=== PATIENT | male | born 1970 | race Caucasian/White ===

== ENCOUNTER 2018-01-12 10:00 | Emergency (ER) | payer MEDICARE, MEDICAID ==
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
[2018-01-12 12:20] LABS: Hematocrit 52 % (42-52); Hemoglobin 18.5 g/dl (14.0-18.0); Mean Corpuscular HGB Conc 36 g/dl (31-36); Mean Corpuscular Hemoglobin 34 pg (27-31); Mean Corpuscular Volume 96 fL (80-94); Mean Platelet Volume 7.8 um3 (7.4-10.4); Platelet Count 336 10^3/ul (150-450); Red Blood Count 5.38 10^6/ul (4.00-5.40); Red Cell Distribution Width 13 % (10.5-15); White Blood Count 10.7 10^3/ul (3.5-10.8)
[2018-01-12 12:26] LABS: INR 0.96 (0.77-1.02)
--- NOTE | 2018-01-12 12:42 | RAD ---
INDICATION: Left wrist injury. TECHNIQUE: 3 views of the left wrist were obtained. FINDINGS: The bones are in normal alignment. No fracture is seen. Joint spaces appear maintained. IMPRESSION: NO EVIDENCE FOR FRACTURE. IF THE PATIENT'S SYMPTOMS PERSIST RECOMMEND FOLLOW-UP IMAGING.
--- NOTE | 2018-01-12 12:48 | RAD ---
INDICATION: Head injury. COMPARISON: Comparison is made with a prior CT of the brain from March 01, 2009. TECHNIQUE: Contiguous axial sections of the brain were obtained from the skull base to the vertex without contrast. FINDINGS: The ventricles, cisterns and sulci are within normal limits. No significant focal abnormality or mass effect is seen. There is no evidence for hemorrhage. There is a relatively large hematoma present adjacent to the right temporal and frontal bones in the scalp measuring 8.0 x 1.8 cm in size. No fracture is seen. The visualized portion of the paranasal sinuses and mastoid air cells appear clear. IMPRESSION: LARGE HEMATOMA IN THE SCALP ADJACENT TO THE RIGHT TEMPORAL AND PARIETAL BONES, NO FRACTURE IS SEEN. NO EVIDENCE FOR ACUTE INTRACRANIAL ABNORMALITY.
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
[2018-01-12] MEDS ORDERED: Acetaminophen TAB* 325 MG PO ONE (13:07)
[2018-01-12] MEDS ORDERED: Fluorescein Sodium TOPICAL* 1 MG TEST STRIP OPHTHALMIC ONE (13:37)
[2018-01-12] MEDS ORDERED: Tetracaine 0.5% OPTH.SOL 15ML* BTL RIGHT EYE ONE (13:37)
[2018-01-12 17:31] VITALS: BP 141/99
== END 2018-01-12 17:29 | disposition short-term general hospital (02) ==
LOC: ED 10:00
DX: S00.83XA Contusion of other part of head, initial encounter (principal); H53.9 Unspecified visual disturbance; Y00.XXXA Assault by blunt object, initial encounter; Y92.009 Unspecified place in unspecified non-institutional (private) residence as the place of occurrence of the external cause; Z87.891 Personal history of nicotine dependence; L40.50 Arthropathic psoriasis, unspecified; F41.9 Anxiety disorder, unspecified
CPT/HCPCS: 36415; 70450; 70486; 85027; 85610; 85730; 99284; A9270-GY

== ENCOUNTER 2018-01-22 11:21 | Inpatient (IN) | payer MEDICARE, MEDICAID ==
--- OUTSIDE RECORDS SUMMARY | 2018-01-22 11:59 | XMS REPORT ---
:1970 External Reference #:[id number] Author Organization [facility] Address [address] [place] [address] [place] [address] Phone [phone] Care Team Providers Name Role Phone Chintan Ayala MD Primary Care Physician Unavailable Payers Type Date Identification Numbers Payment Provider Subscriber Medicare Primary Effective: Policy Number: Medicare Varun Alvarado Backner 2008 [id number] PayID: [id number] [address] [place] [address] Medigap Part B Effective: 2014 Policy Number: [id number] Medicaid Varun Alvarado Backner PayID: [id number] [address] [place] [address] Medigap Part B Effective: 2008 Policy Number: [id number] Medicaid Varun Alvarado Backner Expires: 2014 Group Name: [id number] PayID: [id number] [place] [address] Problems Date Description Provider Status Onset: 12/08/2013 Psoriasis with arthropathy Roger Fung M.D. Active Onset: 12/08/2013 Myalgia & Myositis Unspec Roger Fung M.D. Active Onset: 12/22/2013 Disorder of shoulder Roger Fung M.D. Active Onset: 04/06/2014 Synovitis and tenosynovitis Roger Fung M.D. Active Onset: 01/05/2015 Psoriatic arthritis with spine AMANDA Hamilton Active involvement Social History Type Date Description Comments Work Status Not Currently Working Work Status Chrinically disabled ETOH Use Denies alcohol use ETOH Use He was an alcoholic until 10 years ago when he quit Smoking Patient is a former smoker quit 2006 Exercise Type/Frequency short walks (ffot pain), swiming, weights Allergies, Adverse Reactions, Alerts Date Description Reaction Status Severity Comments 08/26/2013 Sulfur active Medications Medication Date Status Form Strength Qnty SIG Indications Ordering Provider Kishore 03/26/ Active Misc for disposal L40.53 [employer] Container 2018 of needles Gonzalo, MEDICAL LAB TECHNOLOGIST Humira Pen 05/18/ Active PNKT 40mg/0.8M 4unit inject 40 mg L40.53 Zsofia 2014 L s subcutaneous Gonzalo, once every MEDICAL LAB TECHNOLOGIST other week Vitamin E / Active Capsules 1000Unit qd Unknown 0000 Calcium 600 / Active Tablets 600mg 1 by mouth a Unknown 0000 day Vitamin D-3 / Active Tablets 2000Units 8tabs 2500 iu Unknown 0000 Daily-Vitamin / Active Tablets 1 by mouth Unknown 0000 every day [facility]-3 Fish / Active Capsules 1200mg 1 by mouth Unknown Oil 0000 every day Miralax / Active Powder 3350NF 238gm 17 gm every Unknown 0000 day mixed w/ 8 oz water/juice Trazodone HCL / Active Tablets 150mg 120ta 2 by mouth Unknown 0000 bs every night at bedtime Morphine / Active Tablets 7.5 1by mouth two G89.4 Unknown Sulfate 0000 a day Metformin HCL 00/ Active Tablets 500mg Unknown 0000 Vraylar 0000/ Active Capsules 1.5mg Unknown 0000 Meloxicam / Active Tablets 15mg 1 by mouth Unknown 0000 every day Ginkgo Biloba 00/ Active Capsules 30mg 1 by mouth Unknown 0000 twice a day Ginseng 00/ Active Capsules Unknown 0000 Multivitamin 0000/ Active Tablets 1 by mouth Unknown Adult 0000 every day Probiotic 00/ Active Capsules 1 by mouth Unknown 0000 every day Diclofenac 04/08/ Hx Solution 1.5% 150ml apply to M25.511 [facility]ia Sodium 2016 - affected area Gonzalo, 03/27/ 2x daily as MEDICAL LAB TECHNOLOGIST 2017 needed for pain Leflunomide 05/18/ Hx Tablets 20mg 30tab 1/2 tab po 696.0 Zsofia 2015 - s for one week Gonzalo, 07/13/ then 1 tab by MEDICAL LAB TECHNOLOGIST 2015 mouth every day Aleve 05/18/ Hx Capsules 220mg 60cap 1 tab by 696.0 Zsofia 2014 - s mouth twice a Gonzalo, [facility] 2014 Stelara 10/07/ Hx Solution 90mg/ml 4unit inject sq at [facility] 2013 - s week 0, week Fung, and every M.D. 2014 12 weeks thereafter. Vitamin C 08/26/ Hx Capsules 500-400mg 1 by mouth Roger 2013 - -Unit every day Fung, /Vitamin E 08/26/ M.D. 2013 Red Rice Yeast 08/26/ Hx 1 by mouth [facility] 2013 - every day Fung, 08/26/ M.D. 2013 Humira / Hx Kit 40mg/0.8M 2unit every other Unknown 0000 - L s week 2013 Vitamin C / Hx Tablets 1000mg 1 by mouth Unknown 0000 - every day 2013 Gabapentin / Hx Capsules 800mg 90cap 1 q 4 hr prn Unknown 0000 - s 2015 Lorazepam 00/ Hx Tablets 2mg 90tab 1 po bid Unknown 0000 - s 2015 Methadone HCL / Hx Tablets 10mg 90tab once daily in G89.4 Unknown 0000 - s morning 2017 Morphine /00/ Hx Tablets ER 30mg 1 by mouth Unknown Sulfate ER 0000 - 2014 Morphine /00/ Hx Tablets ER 30mg 60tab 1 by mouth G89.4 Unknown Sulfate ER 0000 - s every 12h 2017 Nexium /00/ Hx Capsules 40mg 30cap 1 by mouth Unknown 0000 - DR s every day 2017 Niacin /00/ Hx Tablets 50mg qd Unknown 0000 - 2015 Red Yeast Rice /00/ Hx Capsules 600mg twice a day Unknown Extract 0000 - by mouth 2013 Saphris /00/ Hx Tablets 5mg 1 po at hs Unknown 0000 - Sub 2014 Vitamin B-12 / Hx Liquid 1000mcg/1 inject 1000 Unknown 0000 - 5ML mcg q month 2017 Rexulti /00/ Hx Tablets 2mg Unknown 0000 - 2016 Vit B12 / Hx po qd Unknown 0000 - 2016 Lorazepam / Hx Tablets 2mg take 1 tablet Unknown 0000 - by mouth 09/04/ twice a day 2016 maximum daily dose of 2 Morphine / Hx Tablets 15mg 1 tab by G89.4 Unknown Sulfate 0000 - mouth twice a day as needed 2017 for increased pain Medications Administered in Office Medication Date Status Form Strength Qnty SIG Indications Ordering Provider Triamcinolone 04/06/ Administered Injection Roger (Kenalog) 2014 Valentin Fung Triamcinolone 12/22/ Administered Injection Roger (Kenalog) 2013 Valentin Fung Immunizations CPT Code Status Date Vaccine Reaction Lot # [id number] Given 12/07/2016 Pneumonia Vaccine no immediate reaction [id number] noted [id number] Given 11/22/2015 Pneumococcal Conjugate [id number] Vaccine 13 Valent For Intramuscular Use Vital Signs Date Vital Result Comment 01/14/2018 Height 68.75 inches 5'8.75" Weight 240.06 lb Heart Rate 102 /min BP Systolic Sitting 130 mmHg BP Diastolic Sitting 96 mmHg Pain Level 5 O2 % BldC Oximetry 96 % BMI (Body Mass Index) 35.7 kg/m2 10/08/2017 Height 68.75 inches 5'8.75" Weight 240.50 lb Heart Rate 100 /min BP Systolic Sitting 126 mmHg BP Diastolic Sitting 78 mmHg Pain Level 4 O2 % BldC Oximetry 97 % BMI (Body Mass Index) 35.8 kg/m2 06/25/2017 Weight 239.00 lb Heart Rate 80 /min BP Systolic Sitting 118 mmHg BP Diastolic Sitting 80 mmHg Pain Level 3 O2 % BldC Oximetry 94 % 03/26/2017 Height 68.75 inches 5'8.75" Weight 256.00 lb Heart Rate 72 /min BP Systolic Sitting 123 mmHg BP Diastolic Sitting 73 mmHg Respiratory Rate 15 /min Pain Level 3 BMI (Body Mass Index) 38.1 kg/m2 12/07/2016 Height 68.75 inches 5'8.75" Weight 234.00 lb Heart Rate 71 /min BP Systolic Sitting 117 mmHg BP Diastolic Sitting 72 mmHg Respiratory Rate 14 /min Pain Level 3 BMI (Body Mass Index) 34.8 kg/m2 09/04/2016 Height 68.75 inches 5'8.75" Weight 221.00 lb Heart Rate 75 /min BP Systolic Sitting 120 mmHg BP Diastolic Sitting 74 mmHg Body Temperature 97.9 F Pain Level 4 BMI (Body Mass Index) 32.9 kg/m2 03/27/2016 Height 68.75 inches 5'8.75" Weight 238.00 lb Heart Rate 72 /min BP Systolic Sitting 126 mmHg BP Diastolic Sitting 70 mmHg Pain Level 4 BMI (Body Mass Index) 35.4 kg/m2 11/22/2015 Height 68.75 inches 5'8.75" Weight 252.00 lb Heart Rate 80 /min BP Systolic Sitting 132 mmHg BP Diastolic Sitting 80 mmHg Respiratory Rate 14 /min Body Temperature 98.3 F Pain Level 4 BMI (Body Mass Index) 37.5 kg/m2 08/19/2015 Height 68.75 inches 5'8.75" Weight 245.00 lb Heart Rate 80 /min BP Systolic Sitting 132 mmHg BP Diastolic Sitting 80 mmHg Respiratory Rate 16 /min Body Temperature 98.3 F Pain Level 4 BMI (Body Mass Index) 36.4 kg/m2 04/08/2015 Height 68.75 inches 5'8.75" Weight 240.12 lb Heart Rate 72 /min BP Systolic Sitting 118 mmHg BP Diastolic Sitting 70 mmHg Respiratory Rate 14 /min Pain Level 4 BMI (Body Mass Index) 35.7 kg/m2 01/05/2015 Height 68.75 inches 5'8.75" Weight 233.00 lb Heart Rate 76 /min BP Systolic Sitting 110 mmHg BP Diastolic Sitting 70 mmHg Pain Level 4 BMI (Body Mass Index) 34.7 kg/m2 10/05/2014 Height 68.75 inches 5'8.75" Weight 237.00 lb Heart Rate 68 /min BP Systolic Sitting 128 mmHg BP Diastolic Sitting 78 mmHg Pain Level 8 BMI (Body Mass Index) 35.2 kg/m2 07/13/2014 Height 68.75 inches 5'8.75" Weight 242.00 lb Heart Rate 72 /min BP Systolic Sitting 118 mmHg BP Diastolic Sitting 78 mmHg Pain Level 4 BMI (Body Mass Index) 36.0 kg/m2 05/18/2014 Height 68.75 inches 5'8.75" Weight 245.00 lb Heart Rate 80 /min BP Systolic Sitting 120 mmHg BP Diastolic Sitting 70 mmHg Pain Level 5 BMI (Body Mass Index) 36.4 kg/m2 04/06/2014 Height 68.75 inches 5'8.75" Weight 244.00 lb Heart Rate 80 /min BP Systolic Sitting 130 mmHg BP Diastolic Sitting 70 mmHg Pain Level 5 BMI (Body Mass Index) 36.3 kg/m2 03/24/2014 Height 68.75 inches 5'8.75" Weight 245.50 lb Heart Rate 72 /min BP Systolic Sitting 130 mmHg BP Diastolic Sitting 62 mmHg Pain Level 3 BMI (Body Mass Index) 36.5 kg/m2 12/22/2013 Height 68.75 inches 5'8.75" Weight 243.50 lb Heart Rate 78 /min BP Systolic Sitting 138 mmHg BP Diastolic Sitting 68 mmHg Pain Level 4 BMI (Body Mass Index) 36.2 kg/m2 12/08/2013 Height 68.75 inches 5'8.75" Weight 240.00 lb Heart Rate 72 /min BP Systolic Sitting 130 mmHg BP Diastolic Sitting 70 mmHg Pain Level 6 BMI (Body Mass Index) 35.7 kg/m2 10/07/2013 Weight 236.00 lb Heart Rate 74 /min BP Systolic Sitting 120 mmHg BP Diastolic Sitting 66 mmHg Pain Level 4 08/26/2013 Height 70 inches 5'10" Weight 234.00 lb Heart Rate 83 /min BP Systolic Sitting 118 mmHg BP Diastolic Sitting 78 mmHg Pain Level 4 BMI (Body Mass Index) 33.6 kg/m2 Results Test Date Test Result H/L Range Note CBC Auto Diff 11/20/2017 White Blood Count 6.5 10^3/uL 3.5-10.8 Red Blood Count 4.38 10^6/uL 4.00-5.40 Hemoglobin 15.2 g/dL 14.0-18.0 Hematocrit 42 % 42-52 Mean Corpuscular Volume 97 fL High 80-94 Mean Corpuscular Hemoglobin 35 pg High 27-31 Mean Corpuscular HGB Conc 36 g/dL 31-36 Red Cell Distribution Width 13 % 10.5-15 Platelet Count 245 10^3/uL 150-450 Mean Platelet Volume 8.7 um3 7.4-10.4 Abs Neutrophils 4.1 10^3/uL 1.5-7.7 Abs Lymphocytes 1.6 10^3/uL 1.0-4.8 Abs Monocytes 0.5 10^3/uL 0-0.8 Abs Eosinophils 0.2 10^3/uL 0-0.6 Abs Basophils 0 10^3/uL 0-0.2 Abs Nucleated RBC 0 10^3/uL Granulocyte % 63.2 % 38-83 Lymphocyte % 25.3 % 25-47 Monocyte % 7.6 % High 0-7 Eosinophil % 3.3 % 0-6 Basophil % 0.6 % 0-2 Nucleated Red Blood Cells % 0.1 Comp Metabolic Panel 11/20/2017 Sodium 140 mmol/L 135-145 Potassium 3.5 mmol/L 3.5-5.0 Chloride 107 mmol/L 101-111 Co2 Carbon Dioxide 24 mmol/L 22-32 Anion Gap 9 mmol/L 2-11 Glucose 176 mg/dL High 70-100 Blood Urea Nitrogen 20 mg/dL 6-24 Creatinine 0.93 mg/dL 0.67-1.17 BUN/Creatinine Ratio 21.5 High 8-20 Calcium 9.4 mg/dL 8.6-10.3 Total Protein 6.4 g/dL 6.4-8.9 Albumin 4.1 g/dL 3.2-5.2 Globulin 2.3 g/dL 2-4 Albumin/Globulin Ratio 1.8 1-3 Total Bilirubin 0.40 mg/dL 0.2-1.0 Alkaline Phosphatase 100 U/L 34-104 Alt 19 U/L 7-52 Ast 14 U/L 13-39 Egfr Non- 86.7 >60 Egfr 104.9 >60 1 Laboratory test finding 11/20/2017 C Reactive Protein 3.82 mg/L <8.01 Erythrocyte Sed Rate 9 mm/Hr 0-14 CBC Auto Diff 06/28/2017 White Blood Count 5.4 10^3/uL 3.5-10.8 Red Blood Count 4.53 10^6/uL 4.0-5.4 Hemoglobin 15.7 g/dL 14.0-18.0 Hematocrit 44 % 42-52 Mean Corpuscular Volume 96 fL High 80-94 Mean Corpuscular Hemoglobin 35 pg High 27-31 Mean Corpuscular HGB Conc 36 g/dL 31-36 Red Cell Distribution Width 13 % 10.5-15 Platelet Count 244 10^3/uL 150-450 Mean Platelet Volume 8.5 um3 7.4-10.4 Abs Neutrophils 2.7 10^3/uL 1.5-7.7 Abs Lymphocytes 2.0 10^3/uL 1.0-4.8 Abs Monocytes 0.4 10^3/uL 0-0.8 Abs Eosinophils 0.2 10^3/uL 0-0.6 Abs Basophils 0 10^3/uL 0-0.2 Abs Nucleated RBC 0 10^3/uL Granulocyte % 50.7 % 38-83 Lymphocyte % 37.0 % 25-47 Monocyte % 8.3 % High 0-7 Eosinophil % 3.5 % 0-6 Basophil % 0.5 % 0-2 Nucleated Red Blood Cells % 0 Comp Metabolic Panel 06/28/2017 Sodium 141 mmol/L 139-145 Potassium 3.7 mmol/L 3.5-5.0 Chloride 108 mmol/L 101-111 Co2 Carbon Dioxide 28 mmol/L 22-32 Anion Gap 5 mmol/L 2-11 Glucose 116 mg/dL High 70-100 Blood Urea Nitrogen 23 mg/dL 6-24 Creatinine 1.18 mg/dL High 0.67-1.17 BUN/Creatinine Ratio 19.5 8-20 Calcium 9.4 mg/dL 8.6-10.3 Total Protein 7.0 g/dL 6.4-8.9 Albumin 4.4 g/dL 3.2-5.2 Globulin 2.6 g/dL 2-4 Albumin/Globulin Ratio 1.7 1-3 Total Bilirubin 0.50 mg/dL 0.2-1.0 Alkaline Phosphatase 85 U/L 34-104 Alt 33 U/L 7-52 Ast 21 U/L 13-39 Egfr Non- 65.9 >60 Egfr 84.7 >60 2 Laboratory test finding 06/28/2017 C Reactive Protein 4.54 mg/L < 5.00 3 Erythrocyte Sed Rate 6 mm/Hr 0-14 4 Lipid Profile (Trig/Chol/HDL) 06/28/2017 Triglycerides 81 mg/dL 5 Cholesterol 152 mg/dL 6 HDL Cholesterol 40.8 mg/dL 7 LDL Cholesterol 95 mg/dL 8 CBC Auto Diff 03/27/2017 White Blood Count 5.6 10^3/uL 3.5-10.8 Red Blood Count 4.50 10^6/uL 4.0-5.4 Hemoglobin 15.7 g/dL 14.0-18.0 Hematocrit 43 % 42-52 Mean Corpuscular Volume 95 fL High 80-94 Mean Corpuscular Hemoglobin 35 pg High 27-31 Mean Corpuscular HGB Conc 37 g/dL High 31-36 Red Cell Distribution Width 13 % 10.5-15 Platelet Count 204 10^3/uL 150-450 Mean Platelet Volume 9 um3 7.4-10.4 Abs Neutrophils 3.5 10^3/uL 1.5-7.7 Abs Lymphocytes 1.6 10^3/uL 1.0-4.8 Abs Monocytes 0.3 10^3/uL 0-0.8 Abs Eosinophils 0.1 10^3/uL 0-0.6 Abs Basophils 0 10^3/uL 0-0.2 Abs Nucleated RBC 0 10^3/uL Granulocyte % 62.9 % 38-83 Lymphocyte % 29.1 % 25-47 Monocyte % 5.7 % 1-9 Eosinophil % 1.8 % 0-6 Basophil % 0.5 % 0-2 Nucleated Red Blood Cells % 0.1 Comp Metabolic Panel 03/27/2017 Sodium 140 mmol/L 133-145 Potassium 4.1 mmol/L 3.5-5.0 Chloride 104 mmol/L 101-111 Co2 Carbon Dioxide 31 mmol/L 22-32 Anion Gap 5 mmol/L 2-11 Glucose 103 mg/dL High 70-100 Blood Urea Nitrogen 17 mg/dL 6-24 Creatinine 1.11 mg/dL 0.67-1.17 BUN/Creatinine Ratio 15.3 8-20 Calcium 9.7 mg/dL 8.6-10.3 Total Protein 7.1 g/dL 6.4-8.9 Albumin 4.3 g/dL 3.2-5.2 Globulin 2.8 g/dL 2-4 Albumin/Globulin Ratio 1.5 1-3 Total Bilirubin 0.40 mg/dL 0.2-1.0 Alkaline Phosphatase 84 U/L 34-104 Alt 25 U/L 7-52 Ast 19 U/L 13-39 Egfr Non- 71.0 >60 Egfr 91.3 >60 9 Laboratory test finding 03/27/2017 C Reactive Protein 1.12 mg/L < 5.00 10 Erythrocyte Sed Rate 5 mm/Hr 0-14 CBC Auto Diff 09/11/2016 White Blood Count 8.1 10^3/uL 3.5-10.8 Red Blood Count 4.27 10^6/uL 4.0-5.4 Hemoglobin 14.9 g/dL 14.0-18.0 Hematocrit 42 % 42-52 Mean Corpuscular Volume 98 fL High 80-94 Mean Corpuscular Hemoglobin 35 pg High 27-31 Mean Corpuscular HGB Conc 36 g/dL 31-36 Red Cell Distribution Width 13 % 10.5-15 Platelet Count 236 10^3/uL 150-450 Mean Platelet Volume 8 um3 7.4-10.4 Abs Neutrophils 5.2 10^3/uL 1.5-7.7 Abs Lymphocytes 2.2 10^3/uL 1.0-4.8 Abs Monocytes 0.4 10^3/uL 0-0.8 Abs Eosinophils 0.2 10^3/uL 0-0.6 Abs Basophils 0 10^3/uL 0-0.2 Abs Nucleated RBC 0 10^3/uL Granulocyte % 64.7 % 38-83 Lymphocyte % 27.8 % 25-47 Monocyte % 5.1 % 1-9 Eosinophil % 2.0 % 0-6 Basophil % 0.4 % 0-2 Nucleated Red Blood Cells % 0 Comp Metabolic Panel 09/11/2016 Sodium 136 mmol/L 133-145 Potassium 4.0 mmol/L 3.5-5.0 Chloride 102 mmol/L 101-111 Co2 Carbon Dioxide 31 mmol/L 22-32 Anion Gap 3 mmol/L 2-11 Glucose 126 mg/dL High 70-100 Blood Urea Nitrogen 15 mg/dL 6-24 Creatinine 1.07 mg/dL 0.67-1.17 BUN/Creatinine Ratio 14.0 8-20 Calcium 9.6 mg/dL 8.6-10.3 Total Protein 6.9 g/dL 6.4-8.9 Albumin 4.0 g/dL 3.2-5.2 Globulin 2.9 g/dL 2-4 Albumin/Globulin Ratio 1.4 1-3 Total Bilirubin 0.40 mg/dL 0.2-1.0 Alkaline Phosphatase 79 U/L 34-104 Alt 21 U/L 7-52 Ast 19 U/L 13-39 Egfr Non- 74.1 >60 Egfr 95.3 >60 11 Laboratory test finding 09/11/2016 C Reactive Protein 2.60 mg/L < 5.00 12 Erythrocyte Sed Rate 10 mm/Hr 0-14 Laboratory test finding 08/28/2016 C Reactive Protein 3.23 mg/L < 5.00 13 Erythrocyte Sed Rate 10 mm/Hr 0-14 14 Comp Metabolic Panel 08/28/2016 Sodium 137 mmol/L 133-145 Potassium 4.0 mmol/L 3.5-5.0 Chloride 103 mmol/L 101-111 Co2 Carbon Dioxide 30 mmol/L 22-32 Anion Gap 4 mmol/L 2-11 Glucose 124 mg/dL High 70-100 Blood Urea Nitrogen 16 mg/dL 6-24 Creatinine 1.08 mg/dL 0.67-1.17 BUN/Creatinine Ratio 14.8 8-20 Calcium 9.4 mg/dL 8.6-10.3 Total Protein 6.8 g/dL 6.4-8.9 Albumin 4.1 g/dL 3.2-5.2 Globulin 2.7 g/dL 2-4 Albumin/Globulin Ratio 1.5 1-3 Total Bilirubin 0.40 mg/dL 0.2-1.0 Alkaline Phosphatase 82 U/L 34-104 Alt 13 U/L 7-52 Ast 15 U/L 13-39 Egfr Non- 73.3 >60 Egfr 94.3 >60 15 CBC Auto Diff 08/28/2016 White Blood Count 7.6 10^3/uL 3.5-10.8 Red Blood Count 4.37 10^6/uL 4.0-5.4 Hemoglobin 14.9 g/dL 14.0-18.0 Hematocrit 42 % 42-52 Mean Corpuscular Volume 97 fL High 80-94 Mean Corpuscular Hemoglobin 34 pg High 27-31 Mean Corpuscular HGB Conc 35 g/dL 31-36 Red Cell Distribution Width 13 % 10.5-15 Platelet Count 230 10^3/uL 150-450 Mean Platelet Volume 9 um3 7.4-10.4 Abs Neutrophils 4.5 10^3/uL 1.5-7.7 Abs Lymphocytes 2.3 10^3/uL 1.0-4.8 Abs Monocytes 0.6 10^3/uL 0-0.8 Abs Eosinophils 0.2 10^3/uL 0-0.6 Abs Basophils 0 10^3/uL 0-0.2 Abs Nucleated RBC 0 10^3/uL Granulocyte % 59.3 % 38-83 Lymphocyte % 29.9 % 25-47 Monocyte % 7.5 % 1-9 Eosinophil % 2.9 % 0-6 Basophil % 0.4 % 0-2 Nucleated Red Blood Cells % 0 Comp Metabolic Panel 11/17/2015 Sodium 137 mmol/L 133-145 Potassium 3.9 mmol/L 3.5-5.0 Chloride 102 mmol/L 101-111 Co2 Carbon Dioxide 29 mmol/L 22-32 Anion Gap 6 mmol/L 2-11 Glucose 101 mg/dL High 70-100 Blood Urea Nitrogen 14 mg/dL 6-24 Creatinine 1.10 mg/dL 0.67-1.17 BUN/Creatinine Ratio 12.7 8-20 Calcium 9.7 mg/dL 8.6-10.3 Total Protein 7.3 g/dL 6.4-8.9 Albumin 4.4 g/dL 3.2-5.2 Globulin 2.9 g/dL 2-4 Albumin/Globulin Ratio 1.5 1-3 Total Bilirubin 0.60 mg/dL 0.2-1.0 Alkaline Phosphatase 83 U/L 34-104 Alt 40 U/L 7-52 Ast 29 U/L 13-39 Egfr Non- 72.1 >60 Egfr 92.7 >60 16 Laboratory test finding 11/17/2015 C Reactive Protein 4.26 mg/L < 5.00 17 CBC Auto Diff 11/17/2015 White Blood Count 5.3 10^3/uL 3.5-10.8 Red Blood Count 4.41 10^6/uL 4.0-5.4 Hemoglobin 15.0 g/dL 14.0-18.0 Hematocrit 42 % 42-52 Mean Corpuscular Volume 96 fL High 80-94 Mean Corpuscular Hemoglobin 34 pg High 27-31 Mean Corpuscular HGB Conc 35 g/dL 31-36 Red Cell Distribution Width 13 % 10.5-15 Platelet Count 204 10^3/uL 150-450 Mean Platelet Volume 9 um3 7.4-10.4 Abs Neutrophils 3.3 10^3/uL 1.5-7.7 Abs Lymphocytes 1.5 10^3/uL 1.0-4.8 Abs Monocytes 0.5 10^3/uL 0-0.8 Abs Eosinophils 0.1 10^3/uL 0-0.6 Abs Basophils 0 10^3/uL 0-0.2 Abs Nucleated RBC 0 10^3/uL Granulocyte % 60.8 % 38-83 Lymphocyte % 27.8 % 25-47 Monocyte % 8.5 % 1-9 Eosinophil % 2.5 % 0-6 Basophil % 0.4 % 0-2 Nucleated Red Blood Cells % 0 Laboratory test finding 11/17/2015 Erythrocyte Sed Rate 11 mm/Hr 0-14 CBC Auto Diff 08/22/2015 White Blood Count 5.6 10^3/uL 3.5-10.8 Red Blood Count 4.33 10^6/uL 4.0-5.4 Hemoglobin 14.7 g/dL 14.0-18.0 Hematocrit 42 % 42-52 Mean Corpuscular Volume 97 fL High 80-94 Mean Corpuscular Hemoglobin 34 pg High 27-31 Mean Corpuscular HGB Conc 35 g/dL 31-36 Red Cell Distribution Width 14 % 10.5-15 Platelet Count 224 10^3/uL 150-450 Mean Platelet Volume 9 um3 7.4-10.4 Abs Neutrophils 2.9 10^3/uL 1.5-7.7 Abs Lymphocytes 2.1 10^3/uL 1.0-4.8 Abs Monocytes 0.5 10^3/uL 0-0.8 Abs Eosinophils 0.1 10^3/uL 0-0.6 Abs Basophils 0 10^3/uL 0-0.2 Abs Nucleated RBC 0.01 10^3/uL Granulocyte % 51.2 % 38-83 Lymphocyte % 37.3 % 25-47 Monocyte % 8.7 % 1-9 Eosinophil % 2.3 % 0-6 Basophil % 0.5 % 0-2 Nucleated Red Blood Cells % 0.2 Comp Metabolic Panel 08/22/2015 Sodium 136 mmol/L 133-145 Potassium 4.0 mmol/L 3.5-5.0 Chloride 102 mmol/L 101-111 Co2 Carbon Dioxide 29 mmol/L 22-32 Anion Gap 5 mmol/L 2-11 Glucose 87 mg/dL 70-100 Blood Urea Nitrogen 15 mg/dL 6-24 Creatinine 1.11 mg/dL 0.67-1.17 BUN/Creatinine Ratio 13.5 8-20 Calcium 9.5 mg/dL 8.6-10.3 Total Protein 7.3 g/dL 6.4-8.9 Albumin 4.3 g/dL 3.2-5.2 Globulin 3.0 g/dL 2-4 Albumin/Globulin Ratio 1.4 1-3 Total Bilirubin 0.50 mg/dL 0.2-1.0 Alkaline Phosphatase 80 U/L 34-104 Alt 52 U/L 7-52 Ast 36 U/L 13-39 Egfr Non- 71.3 >60 Egfr 91.7 >60 18 Laboratory test finding 08/22/2015 C Reactive Protein 2.41 mg/L < 5.00 19 Erythrocyte Sed Rate 10 mm/Hr 0-14 CBC Auto Diff 05/04/2015 White Blood Count 5.3 10^3/uL 3.5-10.8 Red Blood Count 4.30 10^6/uL 4.0-5.4 Hemoglobin 14.8 g/dL 14.0-18.0 Hematocrit 42 % 42-52 Mean Corpuscular Volume 98 fL High 80-94 Mean Corpuscular Hemoglobin 34 pg High 27-31 Mean Corpuscular HGB Conc 35 g/dL 31-36 Red Cell Distribution Width 14 % 10.5-15 Platelet Count 210 10^3/uL 150-450 Mean Platelet Volume 9 um3 7.4-10.4 Abs Neutrophils 2.9 10^3/uL 1.5-7.7 Abs Lymphocytes 1.8 10^3/uL 1.0-4.8 Abs Monocytes 0.4 10^3/uL 0-0.8 Abs Eosinophils 0.1 10^3/uL 0-0.6 Abs Basophils 0 10^3/uL 0-0.2 Abs Nucleated RBC 0.01 10^3/uL Granulocyte % 55.0 % 38-83 Lymphocyte % 34.1 % 25-47 Monocyte % 8.1 % 1-9 Eosinophil % 2.2 % 0-6 Basophil % 0.6 % 0-2 Nucleated Red Blood Cells % 0.1 Comp Metabolic Panel 05/04/2015 Sodium 137 mmol/L 133-145 Potassium 4.0 mmol/L 3.5-5.0 Chloride 102 mmol/L 101-111 Co2 Carbon Dioxide 30 mmol/L 22-32 Anion Gap 5 mmol/L 2-11 Glucose 100 mg/dL 70-100 Blood Urea Nitrogen 16 mg/dL 6-24 Creatinine 1.13 mg/dL 0.67-1.17 BUN/Creatinine Ratio 14.2 8-20 Calcium 9.4 mg/dL 8.6-10.3 Total Protein 7.0 g/dL 6.4-8.9 Albumin 4.3 g/dL 3.2-5.2 Globulin 2.7 g/dL 2-4 Albumin/Globulin Ratio 1.6 1-3 Total Bilirubin 0.50 mg/dL 0.2-1.0 Alkaline Phosphatase 86 U/L 34-104 Alt 48 U/L 7-52 Ast 33 U/L 13-39 Egfr Non- 70.2 >60 Egfr 90.2 >60 20 Laboratory test finding 05/04/2015 C Reactive Protein 1.53 mg/L < 5.00 21 Erythrocyte Sed Rate 15 mm/Hr High 0-14 22 Laboratory test finding 02/14/2015 Rheumatoid Factor <15 IU/mL <15 23 Laboratory test finding 02/14/2015 Erythrocyte Sed Rate 7 mm/Hr 0-14 C Reactive Protein 1.89 mg/L < 5.00 24 Comp Metabolic Panel 02/14/2015 Sodium 138 mmol/L 133-145 Potassium 4.3 mmol/L 3.5-5.0 Chloride 103 mmol/L 101-111 Co2 Carbon Dioxide 31 mmol/L 22-32 Anion Gap 4 mmol/L 2-11 Glucose 105 mg/dL High 70-100 Blood Urea Nitrogen 22 mg/dL 6-24 Creatinine 1.36 mg/dL High 0.67-1.17 BUN/Creatinine Ratio 16.2 8-20 Calcium 9.6 mg/dL 8.6-10.3 Total Protein 7.4 g/dL 6.4-8.9 Albumin 4.3 g/dL 3.2-5.2 Globulin 3.1 g/dL 2-4 Albumin/Globulin Ratio 1.4 1-3 Total Bilirubin 0.40 mg/dL 0.2-1.0 Alkaline Phosphatase 85 U/L 34-104 Alt 27 U/L 7-52 Ast 22 U/L 13-39 Egfr Non- 56.7 >60 Egfr 72.9 >60 25 CBC Auto Diff 02/14/2015 White Blood Count 5.1 10^3/uL 4.8-10.8 Red Blood Count 4.53 10^6/uL 4.0-5.4 Hemoglobin 15.3 g/dL 14.0-18.0 Hematocrit 45 % 42-52 Mean Corpuscular Volume 99 fL High 80-94 Mean Corpuscular Hemoglobin 34 pg High 27-31 Mean Corpuscular HGB Conc 34 g/dL 31-36 Red Cell Distribution Width 13 % 10.5-15 Platelet Count 212 10^3/uL 150-450 Mean Platelet Volume 9 um3 7.4-10.4 Abs Neutrophils 2.5 10^3/uL 1.5-7.7 Abs Lymphocytes 2.0 10^3/uL 1.0-4.8 Abs Monocytes 0.4 10^3/uL 0-0.8 Abs Eosinophils 0.2 10^3/uL 0-0.6 Abs Basophils 0.1 10^3/uL 0-0.2 Abs Nucleated RBC 0.01 10^3/uL Granulocyte % 48.7 % 38-83 Lymphocyte % 38.3 % 25-47 Monocyte % 7.4 % 1-9 Eosinophil % 3.9 % 0-6 Basophil % 1.7 % 0-2 Nucleated Red Blood Cells % 0.1 Laboratory test finding 11/09/2014 Cyclic Citrullinated Pept IgG 39.6 U 26 C Reactive Protein 2.94 mg/L < 5.00 27 CBC Auto Diff 11/09/2014 White Blood Count 5.5 10^3/uL 4.8-10.8 Red Blood Count 4.90 10^6/uL 4.0-5.4 Hemoglobin 16.5 g/dL 14.0-18.0 Hematocrit 48 % 42-52 Mean Corpuscular Volume 97 fL High 80-94 Mean Corpuscular Hemoglobin 34 pg High 27-31 Mean Corpuscular HGB Conc 35 g/dL 31-36 Red Cell Distribution Width 13 % 10.5-15 Platelet Count 246 10^3/uL 150-450 Mean Platelet Volume 8 um3 7.4-10.4 Abs Neutrophils 3.7 10^3/uL 1.5-7.7 Abs Lymphocytes 1.3 10^3/uL 1.0-4.8 Abs Monocytes 0.4 10^3/uL 0-0.8 Abs Eosinophils 0.1 10^3/uL 0-0.6 Abs Basophils 0 10^3/uL 0-0.2 Abs Nucleated RBC 0.01 10^3/uL Granulocyte % 67.4 % 38-83 Lymphocyte % 24.1 % Low 25-47 Monocyte % 6.8 % 1-9 Eosinophil % 1.4 % 0-6 Basophil % 0.3 % 0-2 Nucleated Red Blood Cells % 0.2 Comp Metabolic Panel 11/09/2014 Sodium 134 mmol/L 133-145 Potassium 3.7 mmol/L 3.5-5.0 Chloride 99 mmol/L Low 101-111 Co2 Carbon Dioxide 27 mmol/L 22-32 Anion Gap 8 mmol/L 2-11 Glucose 165 mg/dL High 70-100 Blood Urea Nitrogen 19 mg/dL 6-24 Creatinine 1.14 mg/dL 0.67-1.17 BUN/Creatinine Ratio 16.7 8-20 Calcium 9.8 mg/dL 8.6-10.3 Total Protein 7.7 g/dL 6.4-8.9 Albumin 4.6 g/dL 3.2-5.2 Globulin 3.1 g/dL 2-4 Albumin/Globulin Ratio 1.5 1-3 Total Bilirubin 0.90 mg/dL 0.2-1.0 Alkaline Phosphatase 103 U/L 34-104 Alt 21 U/L 7-52 Ast 18 U/L 13-39 Egfr Non- 69.5 >60 Egfr 89.3 >60 28 Laboratory test finding 08/24/2014 C Reactive Protein <pending> Erythrocyte Sed Rate <pending> CBC Auto Diff 05/26/2014 White Blood Count 5.6 10^3/uL 4.8-10.8 Red Blood Count 4.54 10^6/uL 4.0-5.4 Hemoglobin 15.4 g/dL 14.0-18.0 Hematocrit 44 % 42-52 Mean Corpuscular Volume 96 fL High 80-94 Mean Corpuscular Hemoglobin 34 pg High 27-31 Mean Corpuscular HGB Conc 35 g/dL 31-36 Red Cell Distribution Width 13 % 10.5-15 Platelet Count 225 10^3/uL 150-450 Mean Platelet Volume 8 um3 7.4-10.4 Abs Neutrophils 3.7 10^3/uL 1.5-7.7 Abs Lymphocytes 1.2 10^3/uL 1.0-4.8 Abs Monocytes 0.4 10^3/uL 0-0.8 Abs Eosinophils 0.2 10^3/uL 0-0.6 Abs Basophils 0 10^3/uL 0-0.2 Abs Nucleated RBC 0 10^3/uL Granulocyte % 66.8 % 38-83 Lymphocyte % 22.1 % Low 25-47 Monocyte % 7.1 % 1-9 Eosinophil % 3.6 % 0-6 Basophil % 0.4 % 0-2 Nucleated Red Blood Cells % 0.1 Comp Metabolic Panel 05/26/2014 Sodium 138 mmol/L 133-145 Potassium 3.7 mmol/L 3.5-5.0 Chloride 101 mmol/L 101-111 Co2 Carbon Dioxide 32 mmol/L 22-32 Anion Gap 5 mmol/L 2-11 Glucose 117 mg/dL High 70-100 Blood Urea Nitrogen 27 mg/dL High 6-24 Creatinine 1.16 mg/dL 0.67-1.17 BUN/Creatinine Ratio 23.3 High 8-20 Calcium 9.4 mg/dL 8.6-10.3 Total Protein 7.3 g/dL 6.4-8.9 Albumin 4.1 g/dL 3.2-5.2 Globulin 3.2 g/dL 2-4 Albumin/Globulin Ratio 1.3 1-3 Total Bilirubin 0.40 mg/dL 0.2-1.0 Alkaline Phosphatase 105 U/L High 34-104 Alt 16 U/L 7-52 Ast 17 U/L 13-39 Egfr Non- 68.4 >60 Egfr 88.0 >60 29 Laboratory test finding 05/26/2014 C Reactive Protein 7.81 mg/L High < 5.00 30 Erythrocyte Sed Rate 19 mm/Hr High 0-14 CBC Auto Diff 12/15/2013 White Blood Count 6.0 10^3/uL 4.8-10.8 Red Blood Count 4.66 10^6/uL 4.0-5.4 Hemoglobin 15.9 g/dL 14.0-18.0 Hematocrit 45 % 42-52 Mean Corpuscular Volume 96 fL High 80-94 Mean Corpuscular Hemoglobin 34 pg High 27-31 Mean Corpuscular HGB Conc 36 g/dL 31-36 Red Cell Distribution Width 13 % 10.5-15 Platelet Count 224 10^3/uL 150-450 Mean Platelet Volume 8 um3 7.4-10.4 Abs Neutrophils 3.4 10^3/uL 1.5-7.7 Abs Lymphocytes 1.9 10^3/uL 1.0-4.8 Abs Monocytes 0.5 10^3/uL 0-0.8 Abs Eosinophils 0.2 10^3/uL 0-0.6 Abs Basophils 0 10^3/uL 0-0.2 Abs Nucleated RBC 0 10^3/uL Granulocyte % 56.9 % 38-83 Lymphocyte % 31.0 % 25-47 Monocyte % 8.1 % 1-9 Eosinophil % 3.3 % 0-6 Basophil % 0.7 % 0-2 Nucleated Red Blood Cells % 0 Comp Metabolic Panel 12/15/2013 Sodium 137 mmol/L 133-145 Potassium 3.9 mmol/L 3.7-5.6 Chloride 102 mmol/L 101-111 Co2 Carbon Dioxide 31 mmol/L 22-32 Anion Gap 4 mmol/L 2-11 Glucose 128 mg/dL High 70-100 Blood Urea Nitrogen 20 mg/dL 6-24 Creatinine 1.13 mg/dL 0.67-1.17 BUN/Creatinine Ratio 17.7 8-20 Calcium 9.6 mg/dL 8.6-10.3 Total Protein 7.6 g/dL 6.4-8.9 Albumin 4.3 g/dL 3.2-5.2 Globulin 3.3 g/dL 2-4 Albumin/Globulin Ratio 1.3 1-3 Total Bilirubin 0.40 mg/dL 0.2-1.0 Alkaline Phosphatase 83 U/L 34-104 Alt 18 U/L 7-52 Ast 17 U/L 13-39 Egfr Non- 70.5 >60 Egfr 90.7 >60 31 Laboratory test 08/27/2013 Rheumatoid Factor <15 IU/mL <15 32, 33 finding Hepatitis Acute 08/27/2013 Hepatitis C Antibody Nonreactive Nonreactive 32, 34 Panel Hepatitis B Core IgM Nonreactive Nonreactive 32, 35 Hepatitis B Surface Antigen Nonreactive Nonreactive 32, 36 Laboratory test finding 08/27/2013 CRP High Sensitivity 2.16 mg/L 32, 37 Cyclic Citrullinated Pept IgG <15.6 U 32, 38 Erythrocyte Sed Rate 10 mm/Hr 0-14 32 Comp Metabolic Panel 08/27/2013 Sodium 139 mmol/L 133-145 32 Potassium 3.9 mmol/L 3.7-5.6 32 Chloride 105 mmol/L 101-111 32 Co2 Carbon Dioxide 29 mmol/L 22-32 32 Anion Gap 5 mmol/L 2-11 32 Glucose 121 mg/dL High 70-100 32 Blood Urea Nitrogen 18 mg/dL 6-24 32 Creatinine 1.16 mg/dL 0.67-1.17 32 BUN/Creatinine Ratio 15.5 8-20 32 Calcium 9.7 mg/dL 8.6-10.3 32 Total Protein 7.4 g/dL 6.4-8.9 32 Albumin 4.4 g/dL 3.2-5.2 32 Globulin 3.0 g/dL 2-4 32 Albumin/Globulin Ratio 1.5 1-3 32 Total Bilirubin 0.40 mg/dL 0.2-1.0 32 Alkaline Phosphatase 87 U/L 34-104 32 Alt 17 U/L 7-52 32 Ast 18 U/L 13-39 32 Egfr Non- 68.4 >60 32 Egfr 88.0 >60 32, 39 CBC Auto Diff 08/27/2013 White Blood Count 5.9 10^3/uL 4.8-10.8 32 Red Blood Count 4.71 10^6/uL 4.0-5.4 32 Hemoglobin 16.0 g/dL 14.0-18.0 32 Hematocrit 44 % 42-52 32 Mean Corpuscular Volume 94 fL 80-94 32 Mean Corpuscular Hemoglobin 34 pg High 27-31 32 Mean Corpuscular HGB Conc 36 g/dL 31-36 32 Red Cell Distribution Width 14 % 10.5-15 32 Platelet Count 204 10^3/uL 150-450 32 Mean Platelet Volume 8 um3 7.4-10.4 32 Abs Neutrophils 3.2 10^3/uL 1.5-7.7 32 Abs Lymphocytes 2.1 10^3/uL 1.0-4.8 32 Abs Monocytes 0.5 10^3/uL 0-0.8 32 Abs Eosinophils 0.2 10^3/uL 0-0.6 32 Abs Basophils 0.1 10^3/uL 0-0.2 32 Abs Nucleated RBC 0.01 10^3/uL 32 Granulocyte % 53.5 % 38-83 32 Lymphocyte % 35.0 % 25-47 32 Monocyte % 7.6 % 1-9 32 Eosinophil % 2.6 % 0-6 32 Basophil % 1.3 % 0-2 32 Nucleated Red Blood Cells % 0.1 32 Laboratory test finding 08/27/2013 Calcium Ionized 4.81 mg/dL 4.65-5.28 32 1 Because ethnic data is not always readily available, this report includes an eGFR for both -Americans and non- Americans. The National Kidney Disease Education Program (NKDEP) does not endorse the use of the MDRD equation for patients that are not between the ages of 18 and 70, are , have extremes of body size, muscle mass, or nutritional status, or are non- or non-. According to the National Kidney Foundation, irrespective of diagnosis, the stage of the disease is based on the level of kidney function: Stage Description GFR(mL/min/1.73 m(2)) 1 Kidney damage with normal or decreased GFR 90 2 Kidney damage with mild decrease in GFR 60-89 3 Moderate decrease in GFR 30-59 4 Severe decrease in GFR 15-29 5 Kidney failure <15 (or dialysis) 2 Because ethnic data is not always readily available, this report includes an eGFR for both -Americans and non- Americans. The National Kidney Disease Education Program (NKDEP) does not endorse the use of the MDRD equation for patients that are not between the ages of 18 and 70, are , have extremes of body size, muscle mass, or nutritional status, or are non- or non-. According to the National Kidney Foundation, irrespective of diagnosis, the stage of the disease is based on the level of kidney function: Stage Description GFR(mL/min/1.73 m(2)) 1 Kidney damage with normal or decreased GFR 90 2 Kidney damage with mild decrease in GFR 60-89 3 Moderate decrease in GFR 30-59 4 Severe decrease in GFR 15-29 5 Kidney failure <15 (or dialysis) 3 Acute inflammation: >10.00 4 FASTING 10 HOUR Copy Result to: CHINTAN AYALA ([id number]) 5 Desirable: <150 Borderline High: 150-199 High: 200-499 Very High: >500 6 Desirable: <200 Borderline High: 200-239 High: >239 7 Low: <40 Desirable: 40-60 High: >60 8 Desirable: <100 Near Optimal: 100-129 Borderline High: 130-159 High: 160-189 Very High: >189 9 Because ethnic data is not always readily available, this report includes an eGFR for both -Americans and non- Americans. The National Kidney Disease Education Program (NKDEP) does not endorse the use of the MDRD equation for patients that are not between the ages of 18 and 70, are , have extremes of body size, muscle mass, or nutritional status, or are non- or non-. According to the National Kidney Foundation, irrespective of diagnosis, the stage of the disease is based on the level of kidney function: Stage Description GFR(mL/min/1.73 m(2)) 1 Kidney damage with normal or decreased GFR 90 2 Kidney damage with mild decrease in GFR 60-89 3 Moderate decrease in GFR 30-59 4 Severe decrease in GFR 15-29 5 Kidney failure <15 (or dialysis) 10 Acute inflammation: >10.00 11 Because ethnic data is not always readily available, this report includes an eGFR for both -Americans and non- Americans. The National Kidney Disease Education Program (NKDEP) does not endorse the use of the MDRD equation for patients that are not between the ages of 18 and 70, are , have extremes of body size, muscle mass, or nutritional status, or are non- or non-. According to the National Kidney Foundation, irrespective of diagnosis, the stage of the disease is based on the level of kidney function: Stage Description GFR(mL/min/1.73 m(2)) 1 Kidney damage with normal or decreased GFR 90 2 Kidney damage with mild decrease in GFR 60-89 3 Moderate decrease in GFR 30-59 4 Severe decrease in GFR 15-29 5 Kidney failure <15 (or dialysis) 12 Acute inflammation: >10.00 13 Acute inflammation: >10.00 14 STANDING LAB Q 8 WEEKS OR DIRECTED 15 Because ethnic data is not always readily available, this report includes an eGFR for both -Americans and non- Americans. The National Kidney Disease Education Program (NKDEP) does not endorse the use of the MDRD equation for patients that are not between the ages of 18 and 70, are , have extremes of body size, muscle mass, or nutritional status, or are non- or non-. According to the National Kidney Foundation, irrespective of diagnosis, the stage of the disease is based on the level of kidney function: Stage Description GFR(mL/min/1.73 m(2)) 1 Kidney damage with normal or decreased GFR 90 2 Kidney damage with mild decrease in GFR 60-89 3 Moderate decrease in GFR 30-59 4 Severe decrease in GFR 15-29 5 Kidney failure <15 (or dialysis) 16 Because ethnic data is not always readily available, this report includes an eGFR for both -Americans and non- Americans. The National Kidney Disease Education Program (NKDEP) does not endorse the use of the MDRD equation for patients that are not between the ages of 18 and 70, are , have extremes of body size, muscle mass, or nutritional status, or are non- or non-. According to the National Kidney Foundation, irrespective of diagnosis, the stage of the disease is based on the level of kidney function: Stage Description GFR(mL/min/1.73 m(2)) 1 Kidney damage with normal or decreased GFR 90 2 Kidney damage with mild decrease in GFR 60-89 3 Moderate decrease in GFR 30-59 4 Severe decrease in GFR 15-29 5 Kidney failure <15 (or dialysis) 17 Acute inflammation: >10.00 18 Because ethnic data is not always readily available, this report includes an eGFR for both -Americans and non- Americans. The National Kidney Disease Education Program (NKDEP) does not endorse the use of the MDRD equation for patients that are not between the ages of 18 and 70, are , have extremes of body size, muscle mass, or nutritional status, or are non- or non-. According to the National Kidney Foundation, irrespective of diagnosis, the stage of the disease is based on the level of kidney function: Stage Description GFR(mL/min/1.73 m(2)) 1 Kidney damage with normal or decreased GFR 90 2 Kidney damage with mild decrease in GFR 60-89 3 Moderate decrease in GFR 30-59 4 Severe decrease in GFR 15-29 5 Kidney failure <15 (or dialysis) 19 Acute inflammation: >10.00 20 Because ethnic data is not always readily available, this report includes an eGFR for both -Americans and non- Americans. The National Kidney Disease Education Program (NKDEP) does not endorse the use of the MDRD equation for patients that are not between the ages of 18 and 70, are , have extremes of body size, muscle mass, or nutritional status, or are non- or non-. According to the National Kidney Foundation, irrespective of diagnosis, the stage of the disease is based on the level of kidney function: Stage Description GFR(mL/min/1.73 m(2)) 1 Kidney damage with normal or decreased GFR 90 2 Kidney damage with mild decrease in GFR 60-89 3 Moderate decrease in GFR 30-59 4 Severe decrease in GFR 15-29 5 Kidney failure <15 (or dialysis) 21 Acute inflammation: >10.00 22 standing order 23 Test Performed by: [place] [address] Primary Teaching Assistant: Chad Flores II, M.D., Ph.D. 24 Acute inflammation: >10.00 25 Because ethnic data is not always readily available, this report includes an eGFR for both -Americans and non- Americans. The National Kidney Disease Education Program (NKDEP) does not endorse the use of the MDRD equation for patients that are not between the ages of 18 and 70, are , have extremes of body size, muscle mass, or nutritional status, or are non- or non-. According to the National Kidney Foundation, irrespective of diagnosis, the stage of the disease is based on the level of kidney function: Stage Description GFR(mL/min/1.73 m(2)) 1 Kidney damage with normal or decreased GFR 90 2 Kidney damage with mild decrease in GFR 60-89 3 Moderate decrease in GFR 30-59 4 Severe decrease in GFR 15-29 5 Kidney failure <15 (or dialysis) 26 Interpretation: Weak Positive (20.0-39.9) REFERENCE VALUE <20.0 (Negative) Test Performed by: [place] [address] Primary Teaching Assistant: Chad Flores II, M.D., Ph.D. 27 Acute inflammation: >10.00 28 Because ethnic data is not always readily available, this report includes an eGFR for both -Americans and non- Americans. The National Kidney Disease Education Program (NKDEP) does not endorse the use of the MDRD equation for patients that are not between the ages of 18 and 70, are , have extremes of body size, muscle mass, or nutritional status, or are non- or non-. According to the National Kidney Foundation, irrespective of diagnosis, the stage of the disease is based on the level of kidney function: Stage Description GFR(mL/min/1.73 m(2)) 1 Kidney damage with normal or decreased GFR 90 2 Kidney damage with mild decrease in GFR 60-89 3 Moderate decrease in GFR 30-59 4 Severe decrease in GFR 15-29 5 Kidney failure <15 (or dialysis) 29 Because ethnic data is not always readily available, this report includes an eGFR for both -Americans and non- Americans. The National Kidney Disease Education Program (NKDEP) does not endorse the use of the MDRD equation for patients that are not between the ages of 18 and 70, are , have extremes of body size, muscle mass, or nutritional status, or are non- or non-. According to the National Kidney Foundation, irrespective of diagnosis, the stage of the disease is based on the level of kidney function: Stage Description GFR(mL/min/1.73 m(2)) 1 Kidney damage with normal or decreased GFR 90 2 Kidney damage with mild decrease in GFR 60-89 3 Moderate decrease in GFR 30-59 4 Severe decrease in GFR 15-29 5 Kidney failure <15 (or dialysis) 30 Acute inflammation: >10.00 31 Because ethnic data is not always readily available, this report includes an eGFR for both -Americans and non- Americans. The National Kidney Disease Education Program (NKDEP) does not endorse the use of the MDRD equation for patients that are not between the ages of 18 and 70, are , have extremes of body size, muscle mass, or nutritional status, or are non- or non-. According to the National Kidney Foundation, irrespective of diagnosis, the stage of the disease is based on the level of kidney function: Stage Description GFR(mL/min/1.73 m(2)) 1 Kidney damage with normal or decreased GFR 90 2 Kidney damage with mild decrease in GFR 60-89 3 Moderate decrease in GFR 30-59 4 Severe decrease in GFR 15-29 5 Kidney failure <15 (or dialysis) 32 ~~TEST 33 Test Performed by: [address] [address] Primary Teaching Assistant: Juice Ferrer III, M.D. 34 TEST 35 TEST 36 TEST 37 Low risk: <1.00 Average risk: 1.00-3.00 High risk: >3.00 38 -- REFERENCE VALUE -- <20.0 (Negative) Test Performed by: [address] [address] Primary Teaching Assistant: Juice Ferrer III, M.D. 39 Because ethnic data is not always readily available, this report includes an eGFR for both -Americans and non- Americans. The National Kidney Disease Education Program (NKDEP) does not endorse the use of the MDRD equation for patients that are not between the ages of 18 and 70, are , have extremes of body size, muscle mass, or nutritional status, or are non- or non-. According to the National Kidney Foundation, irrespective of diagnosis, the stage of the disease is based on the level of kidney function: Stage Description GFR(mL/min/1.73 m(2)) 1 Kidney damage with normal or decreased GFR 90 2 Kidney damage with mild decrease in GFR 60-89 3 Moderate decrease in GFR 30-59 4 Severe decrease in GFR 15-29 5 Kidney failure <15 (or dialysis) Procedures Date CPT Code Description Status 04/06/201421155 Inject/Drain Joint/Bursa Small W/O US Completed 12/22/2013 36047 Inject/Drain Joint/Bursa Major W/O US Completed Encounters Type Date Location Provider CPT E/M Dx Office Visit 10/08/2017 [facility] AMANDA [facility] 32761 L40.53 11:00a Of [employer] Helper L40.9 Z79.899 Office Visit 06/25/2017 11:00a [facility] AMANDA Hamilton 01931 L40.53 Of [employer] G89.4 L40.9 Z13.220 Z79.899 Office Visit 03/26/2017 10:00a [facility] AMANDA [facility] 71099 L40.53 Of [employer] G89.4 L40.9 Z79.899 Office Visit 12/07/2016 11:30a [facility] AMANDA Hamilton 67149 L40.53 Of [employer] G89.4 L40.9 Z79.899 Z23 Office Visit 09/04/2016 11:30a [facility] Patito Sánchez, MEDICAL LAB TECHNOLOGIST 49092 L40.53 Of [employer] G89.4 Z79.899 Office Visit 03/27/2016 1:30p [facility] Patito Sánchez, MEDICAL LAB TECHNOLOGIST 25897 L40.53 Of [employer] G89.4 Z79.899 E78.5 Office Visit 11/22/2015 11:00a [facility] Patito Sánchez, MEDICAL LAB TECHNOLOGIST 29093 L40.53 Of [employer] G89.4 Z79.899 E66.9 Z13.220 Z23 Office Visit 08/19/2015 11:00a [facility] Patito Sánchez, MEDICAL LAB TECHNOLOGIST 66102 L40.53 Of [employer] G89.4 M25.511 Z79.899 Office Visit 04/08/2015 1:00p [facility] Patito Sánchez, MEDICAL LAB TECHNOLOGIST 48405 L40.53 Of [employer] M54.2 M47.816 G89.4 Z79.899 M25.511 Office Visit 01/05/2015 10:30a [facility] Patito Sánchez, MEDICAL LAB TECHNOLOGIST 09973 L40.53 Of [employer] M05.79 G89.4 Z79.899 R44.0 Office Visit 10/05/2014 1:00p [facility] Of Patito Sánchez, MEDICAL LAB TECHNOLOGIST 03435 696.0 [employer] 720.9 V58.69 Office Visit 07/13/2014 1:30p [facility] Of Patito Sánchez, MEDICAL LAB TECHNOLOGIST 44354 696.0 [employer] 720.9 338.4 719.44 V58.69 780.1 Office Visit 05/18/2014 3:30p [facility] Of Patito Sánchez, MEDICAL LAB TECHNOLOGIST 88007 696.0 [employer] 338.4 720.9 719.44 V58.69 Office Visit 03/24/2014 11:40a [facility] Of Roger Fung M.D. 01834 729.1 [employer] 696.0 Office Visit 12/08/2013 1:00p [facility] Of Roger Fung M.D. 30881 696.0 [employer] 729.1 Office Visit 10/07/2013 2:00p [facility] Of Roger Fung M.D. 36530 696.0 [employer] 729.1 307.49 Office Visit 08/26/2013 1:00p [facility] Of Roger Fung M.D. 29312 720.9 [facility] 716.99 Office Visit 03/02/2009 1:00a [facility], Bro Barry, 07081 977.9 [facility] Office Visit 03/01/2009 3:15a [facility], Bro Barry, 69851 977.9 [facility] Plan of Care Future Appointment(s):01/27/2018 10:00 am - AMANDA Hamilton at [facility]01/14/2018 - ALEKS HamiltonPH05.231 Hemorrhage of right orbitComments:Please stop Meloxicam for 2 weeks and take Acetaminophen for pain.Please f/u with Dr. Lane.Referral:James Lane MD, OphthalmologyFollow up:2 duwdgY31.899 Other [facility] (current) drug xalpmjtH86.53 Psoriatic aezcxkcdnhkC68.9 Psoriasis, unspecified
--- OUTSIDE RECORDS SUMMARY | 2018-01-22 11:59 | XMS REPORT | Continuity of Care Document ---
:1970 External Reference #:[id number] Author Name Joni Parada, OD Address [address] [place] [address] Care Team Providers Name Role Phone Chintan Ayala MD Care Team Information Clerk Television [employer] Unavailable Jamie SMITH, Chintan Primary Care Physician Unavailable Payers Type Date Identification Numbers Payment Provider Subscriber Policy Number: [id number] Medicare [place] PayID: [id number] [address] [place] [id number] Advance Directives Description No Information Available Problems Date Description Provider Status Onset: 12/22/2013 Disorder of shoulder Active Onset: 12/08/2013 Psoriasis with arthropathy Active Onset: 01/05/2015 Psoriatic arthritis with spine involvement Active Onset: 04/06/2014 Synovitis and tenosynovitis Active Family History Date Family Member(s) Problem(s) Comments Father Glasses Mother Glasses Social History Type Date Description Comments Sex Unknown ETOH Use Denies alcohol use Tobacco Use Start: Unknown Patient has never smoked Smoking Status Reviewed: 01/15/18 Patient has never smoked Allergies, Adverse Reactions, Alerts Date Description Reaction Status Severity Comments 01/14/2018 Sulfur Active Medications Medication Date Status Form Strength Qnty SIG Indications Ordering Provider Mahi Pen Active PNKT 40mg/0.8ML 4units L40.53 Unknown 015 Vitamin E Active Capsules 1000Unit Unknown 000 Calcium 600 Active Tablets 600mg Unknown 000 [place]-3 Fish Oil Active Capsules 1200mg Unknown 000 Miralax Active Powder 3350NF 238unit Unknown 000 s Trazodone HCL Active Tablets 150mg 120tabs Unknown 000 Meloxicam Active Tablets 15mg Unknown 000 Acetaminophen ER 0 Active Tablets ER 500mg Unknown 000 Lorazepam 0 Active Tablets 2mg Unknown 000 Metformin HCL Hx Tablets 500mg Unknown 000 - 018 Vraylar Hx Capsules 1.5mg Unknown 000 - 018 Immunizations CPT Code Status Date Vaccine Lot # [id number] Given 12/07/2016 Pneumococcal Vaccine 2Yrs Or Older [id number] Given 11/22/2015 Pneumococcal Conjugate Vaccine 13 Valent For Intramuscular Use Vital Signs Date Vital Result Comment 01/15/2018 12:46pm Intraocular Pressure Right Eye 21 mmHg Intraocular Pressure Left Eye 21 mmHg Results Test Date Facility Test Result H/L Range Note Laboratory test finding 11/20/2017 N2N/CCD Import Albumin 4.1 g/dL 3.2- 5.2 Albumin/Globulin Ratio 1.8 1 1-3 Alkaline Phosphatase 100 U/L 34-104 Alt 19 U/L 7-52 Anion Gap 9 mmol/L 2-11 Ast 14 U/L 13-39 BUN/Creatinine Ratio 21.5 1 High 8-20 Blood Urea Nitrogen 20 mg/dL 6-24 C Reactive Protein 3.82 mg/L <8.01 Calcium 9.4 mg/dL 8.6-10.3 Chloride 107 mmol/L 101-111 Co2 Carbon Dioxide 24 mmol/L 22-32 Creatinine 0.93 mg/dL 0.67-1.17 Egfr 104.9 1 >60 1 Egfr Non- 86.7 1 >60 Erythrocyte Sed Rate 9 mm/Hr 0-14 Globulin 2.3 g/dL 2-4 Glucose 176 mg/dL High 70-100 Potassium 3.5 mmol/L 3.5-5.0 Sodium 140 mmol/L 135-145 Total Bilirubin 0.40 mg/dL 0.2-1.0 Total Protein 6.4 g/dL 6.4-8.9 CBC Auto Diff 11/20/2017 N2N/CCD Import Abs Basophils 0 10^3/uL 0-0.2 Abs Eosinophils 0.2 10^3/uL 0-0.6 Abs Lymphocytes 1.6 10^3/uL 1.0-4.8 Abs Monocytes 0.5 10^3/uL 0-0.8 Abs Neutrophils 4.1 10^3/uL 1.5-7.7 Abs Nucleated RBC 0 10^3/uL Basophil % 0.6 % 0-2 Eosinophil % 3.3 % 0-6 Granulocyte % 63.2 % 38-83 Hematocrit 42 % 42-52 Hemoglobin 15.2 g/dL 14.0-18.0 Lymphocyte % 25.3 % 25-47 Mean Corpuscular HGB Conc 36 g/dL 31-36 Mean Corpuscular Hemoglobin 35 pg High 27-31 Mean Corpuscular Volume 97 fL High 80-94 Mean Platelet Volume 8.7 um3 7.4-10.4 Monocyte % 7.6 % High 0-7 Nucleated Red Blood Cells % 0.1 1 Platelet Count 245 10^3/uL 150-450 Red Blood Count 4.38 10^6/uL 4.00-5.40 Red Cell Distribution Width 13 % 10.5-15 White Blood Count 6.5 10^3/uL 3.5-10.8 Laboratory test finding 06/28/2017 N2N/CCD Import Albumin 4.4 g/dL 3.2- 5.2 Albumin/Globulin Ratio 1.7 1 1-3 Alkaline Phosphatase 85 U/L 34-104 Alt 33 U/L 7-52 Anion Gap 5 mmol/L 2-11 Ast 21 U/L 13-39 BUN/Creatinine Ratio 19.5 1 8-20 Blood Urea Nitrogen 23 mg/dL 6-24 C Reactive Protein 4.54 mg/L < 5.00 2 Calcium 9.4 mg/dL 8.6-10.3 Chloride 108 mmol/L 101-111 Co2 Carbon Dioxide 28 mmol/L 22-32 Creatinine 1.18 mg/dL High 0.67-1.17 Egfr 84.7 1 >60 3 Egfr Non- 65.9 1 >60 Erythrocyte Sed Rate 6 mm/Hr 0-14 4 Globulin 2.6 g/dL 2-4 Glucose 116 mg/dL High 70-100 Potassium 3.7 mmol/L 3.5-5.0 Sodium 141 mmol/L 139-145 Total Bilirubin 0.50 mg/dL 0.2-1.0 Total Protein 7.0 g/dL 6.4-8.9 CBC Auto Diff 06/28/2017 N2N/CCD Import Abs Basophils 0 10^3/uL 0-0.2 Abs Eosinophils 0.2 10^3/uL 0-0.6 Abs Lymphocytes 2.0 10^3/uL 1.0-4.8 Abs Monocytes 0.4 10^3/uL 0-0.8 Abs Neutrophils 2.7 10^3/uL 1.5-7.7 Abs Nucleated RBC 0 10^3/uL Basophil % 0.5 % 0-2 Eosinophil % 3.5 % 0-6 Granulocyte % 50.7 % 38-83 Hematocrit 44 % 42-52 Hemoglobin 15.7 g/dL 14.0-18.0 Lymphocyte % 37.0 % 25-47 Mean Corpuscular HGB Conc 36 g/dL 31-36 Mean Corpuscular Hemoglobin 35 pg High 27-31 Mean Corpuscular Volume 96 fL High 80-94 Mean Platelet Volume 8.5 um3 7.4-10.4 Monocyte % 8.3 % High 0-7 Nucleated Red Blood Cells % 0 1 Platelet Count 244 10^3/uL 150-450 Red Blood Count 4.53 10^6/uL 4.0-5.4 Red Cell Distribution Width 13 % 10.5-15 White Blood Count 5.4 10^3/uL 3.5-10.8 Lipid Profile (Trig/Chol/HDL) 06/28/2017 N2N/CCD Import Cholesterol 152 mg/ dL 5 HDL Cholesterol 40.8 mg/dL 6 LDL Cholesterol 95 mg/dL 7 Triglycerides 81 mg/dL 8 Laboratory test finding 03/27/2017 N2N/CCD Import Albumin 4.3 g/dL 3.2- 5.2 Albumin/Globulin Ratio 1.5 1 1-3 Alkaline Phosphatase 84 U/L 34-104 Alt 25 U/L 7-52 Anion Gap 5 mmol/L 2-11 Ast 19 U/L 13-39 BUN/Creatinine Ratio 15.3 1 8-20 Blood Urea Nitrogen 17 mg/dL 6-24 C Reactive Protein 1.12 mg/L < 5.00 9 Calcium 9.7 mg/dL 8.6-10.3 Chloride 104 mmol/L 101-111 Co2 Carbon Dioxide 31 mmol/L 22-32 Creatinine 1.11 mg/dL 0.67-1.17 Egfr 91.3 1 >60 10 Egfr Non- 71.0 1 >60 Erythrocyte Sed Rate 5 mm/Hr 0-14 Globulin 2.8 g/dL 2-4 Glucose 103 mg/dL High 70-100 Potassium 4.1 mmol/L 3.5-5.0 Sodium 140 mmol/L 133-145 Total Bilirubin 0.40 mg/dL 0.2-1.0 Total Protein 7.1 g/dL 6.4-8.9 CBC Auto Diff 03/27/2017 N2N/CCD Import Abs Basophils 0 10^3/uL 0-0.2 Abs Eosinophils 0.1 10^3/uL 0-0.6 Abs Lymphocytes 1.6 10^3/uL 1.0-4.8 Abs Monocytes 0.3 10^3/uL 0-0.8 Abs Neutrophils 3.5 10^3/uL 1.5-7.7 Abs Nucleated RBC 0 10^3/uL Basophil % 0.5 % 0-2 Eosinophil % 1.8 % 0-6 Granulocyte % 62.9 % 38-83 Hematocrit 43 % 42-52 Hemoglobin 15.7 g/dL 14.0-18.0 Lymphocyte % 29.1 % 25-47 Mean Corpuscular HGB Conc 37 g/dL High 31-36 Mean Corpuscular Hemoglobin 35 pg High 27-31 Mean Corpuscular Volume 95 fL High 80-94 Mean Platelet Volume 9 um3 7.4-10.4 Monocyte % 5.7 % 1-9 Nucleated Red Blood Cells % 0.1 1 Platelet Count 204 10^3/uL 150-450 Red Blood Count 4.50 10^6/uL 4.0-5.4 Red Cell Distribution Width 13 % 10.5-15 White Blood Count 5.6 10^3/uL 3.5-10.8 1 Because ethnic data is not always [...] 5 Kidney failure <15 (or dialysis) 2 Acute inflammation: >10.00 3 Because ethnic data is not always readily [...] 15-29 5 Kidney failure <15 (or dialysis) 4 FASTING 10 HOUR Copy Result to: CHINTAN AYALA ([id number]) 5 Desirable: <200 Borderline High: 200-239 High: >239 6 Low: <40 Desirable: 40-60 High: >60 7 Desirable: <100 Near Optimal: 100-129 Borderline High: 130-159 High: 160-189 Very High: >189 8 Desirable: <150 Borderline High: 150-199 High: 200-499 Very High: >500 9 Acute inflammation: >10.00 10 Because ethnic data is not always readily [...] 5 Kidney failure <15 (or dialysis) Procedures Description No Information Available Encounters Type Date Location Provider Dx Diagnosis Office Visit 01/15/2018 Main Office Joni Parada, OD S00.11xA Contusion of right 11:15a eyelid and periocular area, init encntr H43.811 Vitreous degeneration, right eye H40.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
[2018-01-22] MEDS ORDERED: Charcoal 50 GM/Sorbitol* 50 GM/240 ML BTL PO ONE (12:10)
[2018-01-22] MEDS ORDERED: Charcoal ACTIVATED* 25 GM/120 ML BTL PO ONE (12:10)
[2018-01-22] MEDS ORDERED: NS 0.9% 1000 ML* 1,000 ML IV ONE (12:17)
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
[2018-01-22 12:46] LABS: ABS Basophils 0.1 10^3/ul (0-0.2); ABS Eosinophils 0.1 10^3/ul (0-0.6); ABS Lymphocytes 1.8 10^3/ul (1.0-4.8); ABS Monocytes 0.6 10^3/ul (0-0.8); ABS Neutrophils 4.6 10^3/ul (1.5-7.7); ABS Nucleated RBC 0 10^3/ul; Eosinophil % 1.4 % (0-6); Hematocrit 45 % (42-52); Hemoglobin 16.2 g/dl (14.0-18.0); Lymphocyte % 24.6 % (25-47); Mean Corpuscular HGB Conc 36 g/dl (31-36); Mean Corpuscular Hemoglobin 34 pg (27-31); Mean Corpuscular Volume 95 fL (80-94); Mean Platelet Volume 7.9 fL (7.4-10.4); Nucleated Red Blood Cells % 0.1; Platelet Count 277 10^3/ul (150-450); Red Blood Count 4.71 10^6/ul (4.00-5.40); Red Cell Distribution Width 13 % (10.5-15); White Blood Count 7.2 10^3/ul (3.5-10.8)
[2018-01-22 12:54] LABS: EGFR Non-African American 82.6 (>60)
[2018-01-22 18:10] LABS: Urine Appearance Cloudy; Urine Blood Negative (Negative); Urine Color Amber; Urine Ketones Negative (Negative); Urine Protein Negative (Negative); Urine Specific Gravity 1.026 (1.010-1.030); Urine Urobilinogen Negative (Negative)
--- NOTE | 2018-01-22 19:16 | ED ---
Progress - Progress Note Progress Note: Pt signed out from Dr. Ross to Dr. Lakhani pending disposition. Per Dr. Clark, dx: unspecified depressive disorder. Pt will be admitted. - Consult/PCP Time Called: 18:00 Re-Evaluation - Re-Evaluation First Eval Re-Evaluation Time: 16:55 Comment: Psych was called to inform that patient is medically cleared. Course/Dx - Course Course Of Treatment: Patient is a 47 y/o M w/ c/o trazadone overdose. Pt was signed out from Dr. Ross to Dr. Lakhani pending disposition. Per Dr. Clark , dx: unspecified depressive disorder. Pt will be admitted. - Diagnoses Provider Diagnoses: Depressive disorder - Provider Notifications Discussed Care Of Patient With: Chacorta Clark Time Discussed With Above Provider: 19:30 Instructed by Provider To: Admit As Inpatient Discharge - Sign-Out/Discharge Documenting (check all that apply): Patient Departure - Admit - Discharge Plan Condition: Fair Disposition: ADMITTED TO [facility] Referrals: Ruddy Ayala MD [Primary Care Provider] - - Attestation Statements Document Initiated by Scribe: Yes Documenting Scribe: Jalen Esquivel Provider For Whom Scribe is Documenting (Include Credential): Nissa Lakhani MD Scribe Attestation: Jalen Bond, scribed for Nissa Lakhani MD on 01/22/18 at 1927.
[2018-01-22] MEDS ORDERED: Al Hydrox/Mg Hydrox/Simet LIQ* 30 ML UDC PO PRN (21:03)
[2018-01-22] MEDS: Acetaminophen TAB* 325 MG PO PRN (21:11)
[2018-01-23] MEDS: Acetaminophen TAB* 325 MG PO PRN ×4 (07:27→21:05)
[2018-01-23] MEDS: LORazepam TAB(*) 1 MG PO SCH ×2 (09:50→21:03)
[2018-01-23] MEDS: Vitamin THERAPEUTIC TAB PO SCH (09:50)
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
[2018-01-24] MEDS: Acetaminophen TAB* 325 MG PO PRN ×4 (06:00→20:26)
[2018-01-24] MEDS: celeCOXIB CAP* 100 MG PO SCH (08:27)
[2018-01-24] MEDS: LORazepam TAB(*) 1 MG PO SCH ×2 (08:27→20:25)
[2018-01-24] MEDS: Vitamin THERAPEUTIC TAB PO SCH (08:27)
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
[2018-01-25] MEDS: Acetaminophen TAB* 325 MG PO PRN ×3 (06:56→17:53)
[2018-01-25] MEDS: Vitamin THERAPEUTIC TAB PO SCH (08:24)
[2018-01-25] MEDS: LORazepam TAB(*) 1 MG PO SCH ×2 (08:24→20:58)
[2018-01-25] MEDS: celeCOXIB CAP* 100 MG PO SCH (08:25)
[2018-01-26] MEDS: Acetaminophen TAB* 325 MG PO PRN ×4 (06:29→21:17)
[2018-01-26] MEDS: LORazepam TAB(*) 1 MG PO SCH ×2 (08:27→21:17)
[2018-01-26] MEDS: Vitamin THERAPEUTIC TAB PO SCH (08:27)
[2018-01-26] MEDS: celeCOXIB CAP* 100 MG PO SCH (09:11)
[2018-01-27] MEDS: Acetaminophen TAB* 325 MG PO PRN (06:46)
[2018-01-27] MEDS: Vitamin THERAPEUTIC TAB PO SCH ×2 (06:46→11:40)
[2018-01-27] MEDS: LORazepam TAB(*) 1 MG PO SCH ×2 (06:46→11:39)
[2018-01-27 09:08] VITALS: BP 136/73
[2018-01-27] MEDS: celeCOXIB CAP* 100 MG PO SCH (10:54)
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
== END 2018-01-27 11:40 | disposition home or self-care (01) | DRG 885 ==
LOC: ED 11:21 → BSU 20:47
PROVIDERS: ADMIT Psychiatry & Neurology Psychiatry; ATTEND Psychiatry & Neurology Psychiatry
DX: F29 Unspecified psychosis not due to a substance or known physiological condition (principal); F32.9 Major depressive disorder, single episode, unspecified; L40.50 Arthropathic psoriasis, unspecified; T43.212A Poisoning by selective serotonin and norepinephrine reuptake inhibitors, intentional self-harm, initial encounter; S00.11XA Contusion of right eyelid and periocular area, initial encounter; X58.XXXA Exposure to other specified factors, initial encounter; F12.90 Cannabis use, unspecified, uncomplicated; Z88.2 Allergy status to sulfonamides; Y92.9 Unspecified place or not applicable
CPT/HCPCS: 36415; 70450; 71045; 80053; 80061; 80307; 80329; 81003; 82140; 83036; 83735; 84443; 85025; 93005; 99222; 99231; 99238; 99285; A9270-GY; G0480